=== PATIENT | male | born 1990 | race Caucasian/White ===

== ENCOUNTER 2022-01-21 12:24 | Emergency (ER) | payer OTHER ==
[~2022-01-21] VITALS: Ht 177.8 cm; Wt 65.3 kg
[~2022-01-21 12:24] MED LIST: AMOX1TAB12 PO; KETO10TA2 PO
[2022-01-21] MEDS ORDERED: DUI500 PO (15:08)
[2022-01-21] MEDS ORDERED: MUPIROCIN1 G1 TOP (15:08)
== END 2022-01-21 15:30 | disposition home or self-care (01) ==
LOC: ER 12:24
DX: S61.452A Open bite of left hand, initial encounter (principal); W55.01XA Bitten by cat, initial encounter; Y93.9 Activity, unspecified; Y92.9 Unspecified place or not applicable; Y99.9 Unspecified external cause status; S92.352A Displaced fracture of fifth metatarsal bone, left foot, initial encounter for closed fracture; X58.XXXA Exposure to other specified factors, initial encounter

== ENCOUNTER 2023-11-28 20:13 | Emergency (ER) | payer OTHER ==
[~2023-11-28] VITALS: Ht 177.8 cm; Wt 65.3 kg
[~2023-11-28 20:13] MED LIST changes: +DUI500 PO; +MUPIROCIN1 G1 TOP
[2023-11-28] MEDS ORDERED: KETOROLAC TROMETHAMINE 30 MG VIAL IM ONE (21:15)
[2023-11-28] MEDS ORDERED: ORPHENADRINE CITRATE 30 MG/ML AMPUL IM ONE (21:15)
== END 2023-11-28 22:02 | disposition home or self-care (01) ==
LOC: ER 20:15
DX: M54.9 Dorsalgia, unspecified (principal)